=== PATIENT | male | born 1950 | race Caucasian/White ===

== ENCOUNTER → 2016-08-01 | Outpatient (CLI) | payer MEDICARE ==
[~2016-08-01] MED LIST: BYSTOLIC10 MG PO; COREG 12.5 MG12.5 MG PO; FLEXERIL10 MG PO; MEDROL 4MG. DOSE4 MG PO; PERCOCET 10 MG1 EACH PO
== END ==
LOC: RT 07-24 10:00
DX: R06.00 Dyspnea, unspecified (principal)

== ENCOUNTER → 2017-01-15 | Outpatient (CLI) | payer MEDICARE ==
--- NOTE | 2017-01-15 11:04 | RADIOLOGY REPORT PS360 ---
UGI SERIES W/ AIR HISTORY: EPIGASTRIC PAIN,ESOPHAGEAL SPASM ORDERING PHYSICIAN: ALENA RADER MD PATIENT AGE: 66 years COMPARISON: None FINDINGS: There was some mild tertiary contractions of the esophagus. No hernia or mass evident. No reflux apparent. The stomach and duodenum have an unremarkable appearance. No ulcer or mass. The C-loop is unremarkable. FLUOROSCOPY TIME : 1 minute and 21 seconds. IMPRESSION: 1. Mild esophageal dysmotility. 2. Otherwise negative upper GI
== END ==
LOC: RAD 09:00
DX: K44.9 Diaphragmatic hernia without obstruction or gangrene (principal); R10.13 Epigastric pain; K22.4 Dyskinesia of esophagus

== ENCOUNTER 2017-01-25 11:59 | Observation (INO) | payer MEDICARE ==
[2017-01-25] VITALS (13 sets, daily range): BP systolic 124–170; BP diastolic 73–98
[~2017-01-25] VITALS: Ht 182.9 cm; Wt 83.0 kg
--- OUTSIDE RECORDS SUMMARY | 2017-01-25 12:02 | External Medical Summary Rpt | CCD ---
Author Author , NOEMÍ DOWD Address Unknown Phone [email or web address] Immunization Name Date Rout CVX Reac Dose Comm Prov Is Faci e tion ent ider Refu lity Give sed n PCV1 11-0 Intr 133 999 Hist PD20 No PD20 3 4-20 amus oric 255 255 17 cula al r Info rmat ion - Sour ce Unsp ecif ied Infl 11-0 Intr 999 Hist PD20 No PD20 uenz 4-20 amus oric 255 255 a 17 cula al Quad r Info rmat W/Pr ion es - Sour ce Unsp ecif ied Infl 11-0 Intr 0.5 Hist KHAF No RITE uenz 3-20 amus mL oric REDD AID0 a 17 cula al AYMA 3938 Tri, r Info N Adj rmat ion - Sour ce Unsp ecif ied PCV1 11-0 Intr 133 0.5 Hist KHAF No RITE 3 3-20 amus mL oric REDD AID0 17 cula al AYMA 3938 r Info N rmat ion - Sour ce Unsp ecif ied
--- OUTSIDE RECORDS SUMMARY | 2017-01-25 12:02 | External Medical Summary Rpt | CCD ---
Author Author , NOEMÍ DOWD Address Unknown Phone [email or web address] Immunization Name Date Rout CVX Reac Dose [...]
--- OUTSIDE RECORDS SUMMARY | 2017-01-25 12:02 | External Medical Summary Rpt | CCD ---
Author Author , NOEMÍ Organization NOEMÍ Address Unknown Phone [email or web address] Care Team Providers Care Operations Recruiter Name Role Phone Mingo Mason MD, Unavailable Unavailable Mingo Mason MD Purpose Continuity of Care Document - 12-07-2012 through 2016 Problems Code Diagnosis DOS Provider Status 305.1 305.1 12-07-2012 [place] TOBACCO USE [facility] 722.93 722.93 DISC 12-07-2012 [facility] BAR E849.3 E849.3 ACC 12-07-2012 [place] ON INDUSTR 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 PCTRS I48.0 PAROXYSMAL ATRIAL FIBRILLATIO N Z12.5 ENCOUNTER FOR SCREENING FOR MALIGNANT NEOPLASM OF PROSTATE Z79.899 OTHER APPLICATION ENGINEER (CURRENT) DRUG THERAPY Allergies, Adverse Reactions, Alerts Type Drug Allergy Adverse Reaction to Substance Substance Reaction Severity Penicillin DONT WANT TO CAUSE Unknown DAD IS ALLERGIC TO IT Medications Na ND Rx Da Fi Fi Am Da Di Ph RX Ph St me C No te ll ll ou ys ag ar # ys at rm s nt no ma ic us Or Da si cy ia de te s n re d HY [address] 40 -2 OM 91 9- Lo OR 31 20 ng PH 23 13 er ON 0 E Ac 2 ti MG ve /M L CA RP UJ CT OR 17 09 0 No PH 47 -2 EN 80 9- Lo AD 53 20 ng RI 80 13 er NE 2 Ac 30 ti ve MG /M L AL De 00 09 0 No xa 51 -2 me 74 9- Lo th 90 20 ng as 12 13 er on 5 e Ac 4M ti G/ ve Ml Sd v Vital Signs 12-07-2012 14:25 Name Value Interpretat Reference Comment ion Range Body 97.2 [degF] Temperature BP 97 mm[Hg] Diastolic BP Systolic 162 mm[Hg] Heart 71 /min Rate/Pulse O2% 100 % Respiratory 18 /min Rate 12-07-2012 12:39 Name Value Interpretat Reference Comment ion Range BP 80 mm[Hg] Diastolic BP Systolic 138 mm[Hg] Heart 65 /min Rate/Pulse O2% 99 % Respiratory 20 /min Rate Results Labs Lab Lab Date Result Refere Interp Status Commen Order Detail nces retati t Range on Hemoglobin A1c in Blood (10-10-2016 09:45) Hemoglo 5.9 % 0.0% Normal complet bin A1c 017 - ed in 09:45 7.0% Blood Encounters Encounter Start End Date Code Location Performer Type Date Emergency ALONZO Mason MD (ER) 3 12:23 3 14:25 [facility]
--- OUTSIDE RECORDS SUMMARY | 2017-01-25 12:02 | External Medical Summary Rpt | CCD ---
Author Author , NOEMÍ Organization NOEMÍ Address Unknown Phone [email or web address] Providers Care Manager Of Photography Name Role Phone Mingo Mason MD, Unavailable Unavailable Mingo Mason MD Purpose Continuity of Care Document - 12-07-2012 through 2016 Problems Code Diagnosis DOS Provider Status 305.1 305.1 12-07-2012 [place] TOBACCO USE [facility] 722.93 722.93 DISC 12-07-2012 [facility] BAR E849.3 E849.3 ACC 12-07-2012 [place] ON INDUSTR [facility] E927.3 E927.3 12-07-2012 [facility] TRAUMA FROM Hospital REPETITIVE MOTION I25.10 ATHSCL HEART DISEASE OF [place] CORONARY ARTERY W/O ANG PCTRS I48.0 PAROXYSMAL ATRIAL FIBRILLATIO N Z12.5 ENCOUNTER FOR SCREENING FOR MALIGNANT NEOPLASM OF PROSTATE Z79.899 OTHER PARALEGAL INSTRUCTOR (CURRENT) DRUG THERAPY Allergies, Adverse Reactions, Alerts [...] Mason MD (ER) 3 12:23 3 14:25 [facility]
--- OUTSIDE RECORDS SUMMARY | 2017-01-25 12:02 | External Medical Summary Rpt | CCD ---
Author Author [employer] Organization [employer] Address Unknown Phone Unavailable Purpose Continuity of Care Document - through 2016
--- OUTSIDE RECORDS SUMMARY | 2017-01-25 12:03 | External Medical Summary Rpt ---
Author Author NOEMÍ Phillips, FIDEJEAN PIERRE [employer] Organization NOEMÍ [employer] Address Unknown Phone Unavailable Results Hemoglobin A1c in Blood Observa Value Referen Units Interpr Notes Date tion ce etation Range Hemoglo 5.9 0.0 - % Normal < 6% Oct 10 bin A1c 7.0 NON-RYAN 2017 in BETIC 9:45 AM Blood LEVEL< 7% CONTROL LED DIABETI C LEVEL> 8% POORLY CONTROL LED DIABETI C LEVEL Comprehensive metabolic 2000 panel in Serum or Plasma Observa Value Referen Units Interpr Notes Date tion ce etation Range Albumin/G 1.1 - 1.8 No Normal No Oct 10 lobulin informati informati 2017 9:45 [Mass on in on in AM ratio] in source source Serum or data data Plasma Albumin 3.4 - 5.0 gm/dL Normal No Oct 10 [Mass/vol informati 2017 9:45 ume] in on in AM Serum or source Plasma data Alkaline 46 - 116 U/L Normal No Oct 10 phosphata informati 2017 9:45 se on in AM [Enzymati source c data activity/ volume] in Serum or Plasma Bilirubin 0.2 - 1.0 mg/dL Normal No Oct 10 .total informati 2017 9:45 [Mass/vol on in AM ume] in source Serum or data Plasma Urea 7 - 18 mg/dL Normal No Oct 10 nitrogen informati 2017 9:45 [Mass/vol on in AM ume] in source Serum or data Plasma Calcium 8.5 - mg/dL Normal No Oct 10 [Mass/vol 10.1 informati 2017 9:45 ume] in on in AM Serum or source Plasma data Chloride 98 - 107 mmoL/L Normal No Oct 10 [Moles/vo informati 2017 9:45 lume] in on in AM Serum or source Plasma data Carbon 21.0 - mmoL/L Normal No Oct 10 dioxide, 32.0 informati 2017 9:45 total on in AM [Moles/vo source lume] in data Serum or Plasma Creatinin 0.70 - mg/dL Normal No Oct 10 e 1.30 informati 2016 9:45 [Mass/vol on in AM ume] in source Serum or data Plasma Estimated >60 ML/MIN No REFERENCE Oct 10 informati RANGE: 2016 9:45 glomerula on in >60 AM r source ML/MIN/1. filtratio data 73 SQUARE n rate METERSIf (GF this patient is -A merican, then multiply theresult by 1.210. Globulin 1.3 - 3.2 gm/dL High No Oct 10 [Mass/vol informati 2016 9:45 ume] in on in AM Serum source data Glucose 74 - 106 mg/dL High No Oct 10 [Mass/vol informati 2016 9:45 ume] in on in AM Serum or source Plasma data Potassium 3.5 - 5.1 mmoL/L High No Oct 10 informati 2016 9:45 [Moles/vo on in AM lume] in source Serum or data Plasma Sodium 136 - 145 mmoL/L Normal No Oct 10 [Moles/vo informati 2016 9:45 lume] in on in AM Serum or source Plasma data Aspartate 15 - 37 U/L Normal No Oct 10 informati 2016 9:45 aminotran on in AM sferase source [Enzymati data c activity/ volume] in Serum or Plasma Alanine 12 - 78 U/L Normal No Oct 10 aminotran ati 2016 9:45 sferase on in AM [Enzymati source c data activity/ volume] in Serum or Plasma Protein 6.4 - 8.2 gm/dL Normal No Oct 10 [Mass/vol informati 2016 9:45 ume] in on in AM Serum or source Plasma data Lipid 1996 panel in Serum or Plasma Observa Value Referen Units Interpr Notes Date tion ce etation Range Cholester < 200 mg/dL No No Oct 10 ol informati informati 2016 9:45 [Moles/vo on in on in AM lume] in source source Unspecifi data data ed specimen Cholester 40 - 60 MG/DL High No Oct 10 ol in HDL informati 2016 9:45 on in AM [Mass/vol source ume] in data Serum or Plasma Cholester 0 - 130 mg/dL Normal No Oct 10 ol in LDL informati 2016 9:45 on in AM [Mass/vol source ume] in data Serum or Plasma by samuel on Triglycer 30 - 200 mg/dL Normal No Oct 10 yareli informati 2016 9:45 [Moles/vo on in AM lume] in source Serum or data Plasma Cholester 0 - 40 No Normal No Oct 10 ol in informati informati 2016 9:45 VLDL on in on in AM [Mass/vol source source ume] in data data Serum or Plasma Prostate specific Ag [Mass/volume] in Cerebral spinal fluid Observa Value Referen Units Interpr Notes Date tion ce etation Range Prostate 0.0 - 4.0 ng/mL Normal No Oct 10 specific informati 2017 9:45 Ag on in AM [Mass/vol source ume] in data Cerebral spinal fluid Thyrotropin [Units/volume] in Serum or Plasma Observa Value Referen Units Interpr Notes Date tion ce etation Range Thyrotrop 0.358 - uIU/ml Normal No Oct 10 in 3.740 informati 2016 9:45 [Units/vo on in AM lume] in source Serum or data Plasma CBC W Auto Differential panel in Blood Observa Value Referen Units Interpr Notes Date tion ce etation Range Basophils 0 - 0.2 K/MM3 Normal No Oct 10 informati 2016 9:45 [#/volume on in AM ] in source Blood by data Automated count Basophils 0.1 - 2.0 % Normal No Oct 10 /100 informati 2017 9:45 leukocyte on in AM s in source Blood by data Automated count Eosinophi 0.0 - 0.4 K/mm3 Normal No Oct 10 ls informati 2016 9:45 [#/volume on in AM ] in source Blood by data Automated count Eosinophi 0.1 - % Normal No Oct 10 ls/100 12.0 informati 2016 9:45 leukocyte on in AM s in source Blood by data Automated count Granulocy 1.3 - 8.0 K/mm3 Normal No Oct 10 surya informati 2016 9:45 [#/volume on in AM ] in source Blood by data Automated count Granulocy 37.0 - % Normal No Oct 10 surya/100 80.0 informati 2016 9:45 leukocyte on in AM s in source Blood by data Automated count Hematocri 42.0 - % Normal No Oct 10 t [Volume 52.0 informati 2016 9:45 on in AM Fraction] source of Blood data Hemoglobi 14.1 - g/dL No No Oct 10 n 18.0 informati informati 2017 9:45 [Mass/vol on in on in AM ume] in source source Blood data data Lymphocyt 0.7 - 4.5 K/mm3 Normal No Oct 10 es informati 2017 9:45 [#/volume on in AM ] in source Unspecifi data ed specimen by Automated count Lymphocyt 10 - 50 % Normal No Oct 10 es informati 2017 9:45 [#/volume on in AM ] in source Unspecifi data ed specimen by Automated count Erythrocy 27 - 31.2 pg High No Oct 10 te mean informati 2017 9:45 corpuscul on in AM ar source hemoglobi data n [Entitic mass] Erythrocy 31.8 - g/dl Normal No Oct 10 te mean 35.4 informati 2017 9:45 corpuscul on in AM ar source hemoglobi data n concentra tion [Mass/vol ume] by Automated count Erythrocy 82.2 - fl Normal No Oct 10 te mean 97.8 informati 2017 9:45 corpuscul on in AM ar volume source [Entitic data volume] by Automated count Monocytes 0.1 - 1.0 K/mm3 Normal No Oct 10 informati 2017 9:45 [#/volume on in AM ] in source Blood by data Automated count Monocytes 1.7 - 9.3 % Normal No Oct 10 /100 informati 2017 9:45 leukocyte on in AM s in source Blood by data Automated count Platelet 7.4 - fl Normal No Oct 10 mean 10.4 informati 2017 9:45 volume on in AM [Entitic source volume] data in Blood by Automated count Platelets 142 - 424 K/mm3 Normal No Oct 10 informati 2016 9:45 [#/volume on in AM ] in source Blood data Erythrocy 4.6 - 6.2 M/mm3 Normal No Oct 10 surya informati 2017 9:45 [#/volume on in AM ] in source Amniotic data fluid Erythrocy 11.5 - % Normal No Oct 10 te 17.5 informati 2017 9:45 distribut on in AM ion width source [Entitic data volume] by Automated count Leukocyte 4.8 - K/MM3 Normal No Oct 10 s 10.8 informati 2016 9:45 [#/volume on in AM ] in source Blood data
--- NOTE | 2017-01-25 12:07 | CONSULT NOTE ---
Standard Demographics Patient Demo Date of Consultation: 01/25/17 Referring Provider: Gilberto Donald MD Reason for Consultation: Unstable angina, History of CABG PRIMARY DIAGNOSIS: Exertional SOA Problem list Problem list: 1. CAD A. CABG, 2003 2. Hyperlipidemia 3. HTN 4. SSS with history of A. fib A. Pacemaker, 2003, post CABG for bradycardia B. Chronic Xarelto therapy 5. Tobacco use, stopped 2013 History of present illness: History of present illness: 67-year-old white male with multiple risk factors for cardiac disease including heavy smoking history, personal history of cardiac disease with CABG in 2004 and recurrent stent placement, who over the past month has had worsening problems with dyspnea which initially was reported as food and positionally related. We did esophageal workup including upper GI which was unremarkable and patient has not responded to proton pump inhibitor and antispasmodics. Patient to the office today with complaints of worsening exertional dyspnea, and now with dyspnea at rest. Given his history, this seems to be anginal equivalent and he was admitted to hospital for cardiology consultation and evaluation for left heart catheterization The above per Dr. Donald Past Medical History: General: Hypertension No CVA No Seizures No TB No COPD No Asthma No Diabetes No Angina Yes [place] No Hyperlipidemia Yes Urinary No Cancer No Rheumatic H.D. No Ulcers Yes MRSA No GB Disease No Past Surgical HX: Previous Surgery?Y Coronary Artery Bypass CARDIAC CATH PACEMAKER APPENDECTOMY RIGHT KNEE Allergies Coded Allergies: Penicillins (DOESN'T WANT BECAUSE DAD IS ALLERGIC TO IT 01/25/17) Home medications: Active Scripts Methylprednisolone (Medrol Dose Jamaal) 4 MG PO UD #1 JAMAAL Prov: 12/07/12 Cyclobenzaprine Hcl (Flexeril) 10 MG PO TID 5 Days Prov: 12/07/12 Oxycodone 10 Mg\[id number] (Oxycodone-Acetaminophen 10-325) 1 TAB PO Q6HP #10 TAB Prov: 12/07/12 Reported Medications Carvedilol (Coreg 12.5Mg) 12.5 MG PO BID Immunization HX DT/Tetanus 1-4 YRS AGO Family history Family HX Family Hx Insignificant No Social Hx: Smoking HX Packs/day 1 1/2 - 2 PACKS Alcohol Alcohol: Yes Hx of Drug Use Drug Use? No Patien't marital status is Review of systems: Constitutional No: no symptoms reported. Respiratory see HPI, shortness of breath, SOB with excertion, SOB at rest. Cardiovascular No no symptoms reported Gastrointestinal/Abdominal No no symptoms reported Genitourinary No: no symptoms reported. Musculoskeletal No: no symptoms reported. Neurological No: no symptoms reported. Exam: Exam General appearance: alert, awake, no acute distress Neck: no carotid bruit, no JVD Cardiovascular: regular rate & rhythm, no murmur Respiratory: clear to auscultation ABD: soft, no tenderness Extremities: moves all, no peripheral edema Neuro: alert, intact, oriented Plan Assessment: 1. Exertional SOA, progressive and now at rest. Concern for UAP. 2. CAD with history of CABG about 2003 3. SSS/A. fib/Pacemaker nearing replacement indications. 4. Remote tobacco use Plan: 1. Agree with C with grafts. 2. Further recommendations to follow at 1300
--- NOTE | 2017-01-25 12:39 | HISTORY AND PHYSICAL REPORT ---
Demographics: Admit date: 01/25/17 Chief complaint: Exertional dyspnea PRIMARY DIAGNOSIS: Unstable angina (Un) Allergies: Coded Allergies: Penicillins (DOESN'T WANT BECAUSE DAD IS ALLERGIC TO IT 01/25/17) History of present illness: History of present illness: 67-year-old white male with multiple risk factors for cardiac disease including heavy smoking history, personal history of cardiac disease with CABG in 2004 and recurrent stent placement, who over the past month has had worsening problems with dyspnea which initially was reported as food and positionally related. We did esophageal workup including upper GI which was unremarkable and patient has not responded to proton pump inhibitor and antispasmodics. Patient to the office today with complaints of worsening exertional dyspnea, and now with dyspnea at rest. Given his history, this seems to be anginal equivalent and he was admitted to hospital for cardiology consultation and evaluation for left heart catheterization Past medical history: Family HX Family Hx Insignificant No CAD Yes Cancer No Immunization HX DT/Tetanus 1-4 YRS General Angina: Yes VA: No Hypertension? No Hyperlipidemia? Yes CHF? No COPD? No Asthma? No CVA? No Seizures? No Diabetes? No GB Disease: No MRSA? No TB? No Cancer? No Past Surgical HX Previous Surgery?Y Coronary Artery Bypass CARDIAC CATH PACEMAKER APPENDECTOMY RIGHT KNEE Current home meds: Active Scripts Methylprednisolone (Medrol Dose Jamaal) 4 MG PO UD #1 JAMAAL Prov: 12/07/12 Cyclobenzaprine Hcl (Flexeril) 10 MG PO TID 5 Days Prov: 12/07/12 Oxycodone 10 Mg\[id number] (Oxycodone-Acetaminophen 10-325) 1 TAB PO Q6HP #10 TAB Prov: 12/07/12 Reported Medications Carvedilol (Coreg 12.5Mg) 12.5 MG PO BID Social Hx: Smoking HX Packs/day 1 1/2 - 2 PACKS Alcohol Alcohol: Yes Hx of Drug Use Drug Use? No Patien't marital status is Patient's support system is excellent Review of systems: Constitutional malaise, weakness. Respiratory see HPI. Cardiovascular see HPI Gastrointestinal/Abdominal No no symptoms reported Genitourinary No: no symptoms reported. Musculoskeletal No: no symptoms reported. Neurological No: see HPI. Exam: Additional information: Patient is pleasant, alert, appears slightly uncomfortable. ENT is unremarkable except for nicotine halitosis issues. Lungs have smoker's rhonchi, heart rate regular, no edema noted. Good distal pulses. Patient is alert and oriented x3 Plan: Problem List 1. Unstable angina Plan: We will admit to telemetry unit. Enzymes for rule out VA, EKG. Cardiology consultation urgently. at 1238
--- NOTE | 2017-01-25 12:39 | HISTORY AND PHYSICAL REPORT ---
Demographics: Admit date: 01/25/17 Chief complaint: Exertional dyspnea PRIMARY DIAGNOSIS: Unstable angina (Un) Allergies: Coded Allergies: Penicillins (DOESN'T WANT BECAUSE DAD IS ALLERGIC TO IT 01/25/17) History of present illness: History of present illness: 67-year-old white male with multiple risk factors for cardiac disease including heavy smoking history, personal history of cardiac disease with CABG in 2004 and recurrent stent placement, who over the past month has had worsening problems with dyspnea which initially was reported as food and positionally related. We did esophageal workup including upper GI which was unremarkable and patient has not responded to proton pump inhibitor and antispasmodics. Patient to the office today with complaints of worsening exertional dyspnea, and now with dyspnea at rest. Given his history, this seems to be anginal equivalent and he was admitted to hospital for cardiology consultation and evaluation for left heart catheterization Past medical history: Family HX Family Hx Insignificant No CAD Yes Cancer No Immunization HX DT/Tetanus 1-4 YRS General Angina: Yes [place]: No Hypertension? No Hyperlipidemia? Yes CHF? No COPD? No Asthma? No CVA? No Seizures? No Diabetes? No GB Disease: No MRSA? No TB? No Cancer? No Past Surgical HX Previous Surgery?Y Coronary Artery Bypass CARDIAC CATH PACEMAKER APPENDECTOMY RIGHT KNEE Current home meds: Active Scripts Methylprednisolone (Medrol Dose Jamaal) 4 MG PO UD #1 JAMAAL Prov: 12/07/12 Cyclobenzaprine Hcl (Flexeril) 10 MG PO TID 5 Days Prov: 12/07/12 Oxycodone 10 Mg\[id number] (Oxycodone-Acetaminophen 10-325) 1 TAB PO Q6HP #10 TAB Prov: 12/07/12 Reported Medications Carvedilol (Coreg 12.5Mg) 12.5 MG PO BID Social Hx: Smoking HX Packs/day 1 1/2 - 2 PACKS Alcohol Alcohol: Yes Hx of Drug Use Drug Use? No Patien't marital status is Patient's support system is excellent Review of systems: Constitutional malaise, weakness. Respiratory see HPI. Cardiovascular see HPI Gastrointestinal/Abdominal No no symptoms reported Genitourinary No: no symptoms reported. Musculoskeletal No: no symptoms reported. Neurological No: see HPI. Exam: Additional information: Patient is pleasant, alert, appears slightly uncomfortable. ENT is unremarkable except for nicotine halitosis issues. Lungs have smoker's rhonchi, heart rate regular, no edema noted. Good distal pulses. Patient is alert and oriented x3 Plan: Problem List 1. Unstable angina Plan: We will admit to telemetry unit. Enzymes for rule out [place], EKG. Cardiology consultation urgently. at 1238
[2017-01-25 13:23] LABS: HEMOGLOBIN 15.9 g/dL (14.1-18.0); LYMPH # 2.8 K/mm3 (0.7-4.5)
[2017-01-25 13:29] LABS: BUN 9 mg/dL (7-18); GFR (ESTIMATED) 75 ML/MIN (>60)
--- NOTE | 2017-01-25 14:09 | RADIOLOGY REPORT PS360 ---
CARDIAC CATHETERIZATION DATE OF CATHETERIZATION:01/25/2017 1:48 PM PROCEDURES: 1. Left heart catheterization 2. Left ventriculogram 3. Selective coronary angiogram 4. Nonselective left internal mammary angiography 5. [Selective engagement of the saphenous vein graft to the ramus intermedius INDICATION FOR TEST: 1. Coronary artery disease 2. Unstable angina 3. Paced EKG with nondiagnostic EKG 4. History of coronary artery bypass surgery Informed consent was obtained prior to the procedure. COMPLICATIONS: None ESTIMATED BLOOD LOSS: Less than 10 ml. TECHNIQUE: One percent lidocaine used to anesthetize the right anterior aspect of the wrist. The right radial artery was accessed via the Seldinger technique. A 6 Martiniquais sheath was placed in the right radial artery. 2.5 mg of verapamil, 800 mcg of nitroglycerin were given through the arterial sheath. The trap catheter was also used to perform left heart catheterization and left ventriculography. At the end of the procedure the patient was transferred to the post-op holding area in stable condition for arterial sheath removal. ANGIOGRAPHIC RESULTS: 1. The left main artery normal 2. The left anterior descending artery normal 3. The circumflex artery nondominant normal 4. The ramus intermedius is a medium-size vessel and ostially occluded 5. The right coronary artery is a large dominant vessel and has a proximal 10% smooth stenosis 6. The PEREZ ventriculogram reveals normal 65% 7. The left ventricular end-diastolic pressure mildly elevated at 20 mmHg 8. 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 The saphenous vein graft to the ramus intermedius is widely patent IMPRESSION: 1. Mild coronary artery disease as described above with patent saphenous vein graft to a small to medium sized ramus intermedius 2. Normal ejection fraction 3. Mildly elevated LVEDP consistent with diastolic dysfunction 4. Occluded left internal mammary artery not supplying and otherwise angiographically normal LAD PLAN: 1. Patient may have a component of diastolic dysfunction contributing to his dyspnea. Low-dose diuretics with furosemide and or spironolactone may be of some benefit 2. If patient continues to experience dyspnea/angina I would consider using Ranexa for endothelial dysfunction 3. Treatment of underlying lung disease 4. Risk factor modification
[2017-01-25] MEDS ORDERED: IMDUR 30MG. TAB30 MG PO (15:24)
[2017-01-25] MEDS ORDERED: LASIX20 MG PO (15:25)
[2017-01-25] MEDS ORDERED: INCRUSE EL62.5 MCG/A IH (15:26)
== END 2017-01-25 19:53 | disposition home or self-care (01) ==
LOC: 2ND 11:59
PROVIDERS: Internal Medicine; Internal Medicine Adolescent Medicine
PROC: 4A023N7 Measurement of Cardiac Sampling and Pressure, Left Heart, Percutaneous Approach (ICD-10-PCS; principal; 2017-01-25 10:00)
PROC: B2181ZZ Fluoroscopy of Left Internal Mammary Bypass Graft using Low Osmolar Contrast (ICD-10-PCS; principal; 2017-01-25 10:00)
PROC: B2121ZZ Fluoroscopy of Single Coronary Artery Bypass Graft using Low Osmolar Contrast (ICD-10-PCS; principal; 2017-01-25 10:00)
PROC: B2111ZZ Fluoroscopy of Multiple Coronary Arteries using Low Osmolar Contrast (ICD-10-PCS; principal; 2017-01-25 10:00)
PROC: B2151ZZ Fluoroscopy of Left Heart using Low Osmolar Contrast (ICD-10-PCS; principal; 2017-01-25 10:00)
DX: I25.110 Atherosclerotic heart disease of native coronary artery with unstable angina pectoris (principal); Z95.1 Presence of aortocoronary bypass graft; Z95.0 Presence of cardiac pacemaker; R06.09 Other forms of dyspnea; I49.5 Sick sinus syndrome; R00.1 Bradycardia, unspecified; Z72.0 Tobacco use
CPT/HCPCS: C1725; C1769; C1894; G0378; J1644; Q9967